=== PATIENT | male | born 1995 | race Caucasian/White ===

== ENCOUNTER 2022-10-20 10:44 | Emergency (ER) | payer MEDICAID, SELFPAY ==
[2022-10-20 10:46] VITALS: BP 146/93; PULSE 92; RESP 17; TEMP 36.7; O2SAT 100; BMI 27.3
--- NOTE | 2022-10-20 10:55 | ED.C_ITS ---
HPI - Psych General: Chief Complaint: Psychiatric Symptoms Stated Complaint: SI Time Seen by Provider: 10/20/22 10:55 Source: patient Mode of arrival: ambulatory Limitations: no limitations History of Present Illness: Patient is a 27-year-old male who presents to ED today for mental health evaluation. Patient tells me I just cannot get right in my head . He states that no matter what he does his suicidal ideations do not improve. He states he is contemplating multiple ways that he could kill himself but ultimately wanted to purchase a firearm to shoot himself. He reports multiple suicide attempts. Patient tells me he is supposed to be taking psychiatric medications but stopped them a few weeks ago. He reports prior meth use but nothing recently. He is denying homicidal ideations or hallucinations. MD complaint: suicidal ideation and feels depressed Onset (ago): day(s) Duration: constant History of same: Yes Relieving factors: none Exacerbating factors: none Context: recent drug abuse and not taking psychiatric medications Associated psychiatric symptoms: depression and suicidal ideation Associated symptoms: Reports depression and suicidal ideation; Deny auditory hallucinations, visual hallucinations or homicidal ideation Treatments prior to arrival: none If self harm: admits thoughts of self harm and has plan Review of Systems Const: Denies: fever(s) or chills Card: Denies: chest pain, palpitations, lightheadedness or syncope Resp: Denies: dyspnea GI: Denies: abdominal pain, nausea, vomiting or diarrhea Skin/Breast: Denies: rash Neuro: Denies: headache(s) Psych: Reports: anxiety, depression, loss of interest, irritability and suicidal ideation; Denies: visual hallucinations, auditory hallucinations or homicidal ideation Physical Exam Const: COMMON NORMALS: no acute distress, patient oriented x3, alert and well nourished GENERAL APPEARANCE: cooperative and well kempt Resp: COMMON NORMALS: normal respiratory effort and clear to auscultation bilaterally AUSCULTATION: clear to auscultation bilaterally Cardio: COMMON NORMALS: regular rate and regular rhythm RATE: regular rate RHYTHM: regular rhythm Neuro: COMMON NORMALS: patient oriented x3 SENSORIUM/ORIENTATION: Yes alert Psych: COMMON NORMALS: mental status grossly normal, Normal thought process present, cooperative, normal affect, speech normal and activity/motor behavior normal APPEARANCE: Yes grossly normal and Yes well kempt ATTITUDE: Yes calm ACTIVITY/MOTOR BEHAVIOR: No psychomotor agitation and Yes Avoids eye contact (attititude/behavior) SPEECH: Yes normal speech MOOD & AFFECT: Yes depressed mood and Yes Flat affect present THOUGHT PROCESS: Normal thought process present THOUGHT CONTENT: Yes Normal thought content present ATTENTION/CONCENTRATION: Yes attention grossly intact and Yes concentration grossly intact MEMORY/COGNITION: Yes memory grossly intact and Yes cognition grossly intact INSIGHT: Good insight present (Psych) JUDGEMENT: Good judgement present (Psych) Course Vital Signs: Vital signs: Vital Signs Temperature 98.1 F 10/20/22 10:46 Pulse Rate 92 10/20/22 10:46 Respiratory Rate 17 10/20/22 10:46 Blood Pressure 146/93 10/20/22 10:46 Pulse Oximetry 100 10/20/22 10:46 Oxygen Delivery Me thod Room Air 10/20/22 10:46 MDM - Psych Medical Decision Making Patient is on a 96-hour hold. We currently do not have any NPU beds available. Patient was accepted to [facility] adult psychiatric unit. Accepting physician is Dr. Figueroa. Lab Data 10/20/22 11:20 10/20/22 11:20 Laboratory Results WBC 8.2 10^3/uL (4.0-10.0) 10/20/22 11:20 RBC 4.70 10^6/uL (4.1-5.3) 10/20/22 11:20 Hgb 14.6 g/dL (11.7-16.6) 10/20/22 11:20 Hct 41.8 % (42.0-52.0) L 10/20/22 11:20 MCV 88.9 fl (80-94) 10/20/22 11:20 MCH 31.1 pg (28.0-34.0) 10/20/22 11:20 MCHC 34.9 g/dL (30.0-36.0) 10/20/22 11:20 RDW 11.5 % (12.1-15.1) L 10/20/22 11:20 Plt Count 277 10^3/cmm (130-400) 10/20/22 11:20 MPV 9.2 fL (7.4-10.4) 10/20/22 11:20 Neut % (Auto) 71.4 % 10/20/22 11:20 Lymph % (Auto) 20.5 % 10/20/22 11:20 Starr % (Auto) 6.8 % 10/20/22 11:20 Eos % (Auto) 0.7 % 10/20/22 11:20 Baso % (Auto) 0.4 % 10/20/22 11:20 Neut # (Auto) 5.87 10^3/uL (1.8-7.7) 10/20/22 11:20 Lymph # (Auto) 1.7 10^3/uL (0.8-4.8) 10/20/22 11:20 Starr # (Auto) 0.6 10^3/uL (0.2-0.9) 10/20/22 11:20 Eos # (Auto) 0.1 10^3/uL (0.0-0.8) 10/20/22 11:20 Baso # (Auto) 0.0 10^3/uL (0.0-0.1) 10/20/22 11:20 Nucleated RBC % (auto) 0 % 10/20/22 11:20 Nucleated RBCs # 0.0 /100WBC 10/20/22 11:20 Sodium 139 mmol/L (136-145) 10/20/22 11:20 Potassium 4.2 mmol/L (3.5-5.1) 10/20/22 11:20 Chloride 102 mmol/L (98-107) 10/20/22 11:20 Carbon Dioxide 27 mmol/L (22-29) 10/20/22 11:20 Anion Gap 14.2 (5-19) 10/20/22 11:20 BUN 8 mg/dL (6-20) 10/20/22 11:20 Creatinine 1.0 mg/dL (0.7-1.2) 10/20/22 11:20 GFR Calculation 88.3 mL/min (90-130) L 10/20/22 11:20 Glucose 103 mg/dL (65-115) 10/20/22 11:20 Calculated Osmolality 287 mOsm/kg (285-295) 10/20/22 11:20 Calcium 9.1 mg/dL (8.5-10.5) 10/20/22 11:20 Total Bilirubin 0.7 mg/dL (0.15-1.2) 10/20/22 11:20 AST 11 U/L (0-40) 10/20/22 11:20 ALT 9 U/L (0-41) 10/20/22 11:20 Alkaline Phosphatase 55 U/L (40-130) 10/20/22 11:20 Total Protein 6.7 g/dL (6.6-8.7) 10/20/22 11:20 Albumin 4.7 g/dL (3.5-5.2) 10/20/22 11:20 Globulin 2.0 g/dL (1.3-4.6) 10/20/22 11:20 Salicylates < 0.3 mg/dL (3-10) L 10/20/22 11:20 Urine Opiates Screen Negative ng/mL (Negative) 10/20/22 11:00 Acetaminophen < 5.0 ug/mL (10-30) L 10/20/22 11:20 Ur Barbiturates Screen Negative ng/mL (Negative) 10/20/22 11:00 Ur Phencyclidine Scrn Negative ng/mL (Negative) 10/20/22 11:00 Ur Amphetamines Screen Positive ng/mL (Negative) H 10/20/22 11:00 U Benzodiazepines Scrn Negative ng/mL (Negative) 10/20/22 11:00 Urine Cocaine Screen Negative ng/mL (Negative) 10/20/22 11:00 U Marijuana (THC) Screen Positive ng/mL (Negative) H 10/20/22 11:00 Ethyl Alcohol < 10 mg/dL (0-10) 10/20/22 11:20 Influenza Type A Ag negative (Negative) 10/20/22 14:46 Influenza Type B Ag negative (Negative) 10/20/22 14:46 SARS-CoV-2 Ag (Rapid) negative (Negative) 10/20/22 14:46 Discharge Plan Discharge Patient Disposition: Xfer Psychiatric Hosp Clinical Impression: Depression, Suicidal ideation Condition: Stable Coding Level of Care Code ED Broadcast Meteorologist for Shyam Ruelas
[2022-10-20 11:30] LABS: Basophils % 0.4 %; Eosinophils # 0.1 10^3/uL (0.0-0.8); Eosinophils % 0.7 %; Hematocrit 41.8 % (42.0-52.0); Hemoglobin 14.6 g/dL (11.7-16.6); Lymphocytes # 1.7 10^3/uL (0.8-4.8); Lymphocytes % 20.5 %; Mean Corpuscular HGB Conc 34.9 g/dL (30.0-36.0); Mean Corpuscular Hemoglobin 31.1 pg (28.0-34.0); Mean Corpuscular Volume 88.9 fl (80-94); Mean Platelet Volume 9.2 fL (7.4-10.4); Monocytes # 0.6 10^3/uL (0.2-0.9); Monocytes % 6.8 %; Neutrophils # 5.87 10^3/uL (1.8-7.7); Neutrophils % 71.4 %; Nucleated Red Blood Cells % 0 %; Platelet Count 277 10^3/cmm (130-400); Red Cell Distribution Width 11.5 % (12.1-15.1); White Blood Count 8.2 10^3/uL (4.0-10.0)
[2022-10-20 11:34] LABS: Amphetamines Screen Urine Positive (Negative); Barbiturates Screen Urine Negative (Negative); Benzodiazepines Screen Urine Negative (Negative); Cocaine Screen Urine Negative (Negative); Opiate Screen Urine Negative (Negative); PCP Screen Urine Negative (Negative); THC Screen Urine Positive (Negative)
--- NOTE | 2022-10-20 11:37 | PC.PHAR ---
pt states he takes care of his own medications-pt states he stop taking all his meds 2 weeks ago celexa 20mg daily, lisinopril 10mg daily and trazodone 50mg hs filled 09/03/22 30d/s at [facility] [phone]-pt states he thinks he got his invega sustenna 156mg/ml on 09/23/22 [facility] pharmacy last filled 08/11/22 states the rxs has one refill-
[2022-10-20 11:47] LABS: Alanine Aminotransferase 9 U/L (0-41); Albumin Level 4.7 g/dL (3.5-5.2); Alkaline Phosphatase 55 U/L (40-130); Anion Gap 14.2 (5-19); Aspartate Amino Transferase 11 U/L (0-40); Blood Urea Nitrogen 8 mg/dL (6-20); Calcium 9.1 mg/dL (8.5-10.5); Carbon Dioxide 27 mmol/L (22-29); Chloride 102 mmol/L (98-107); Glomerular Filtration Rate 88.3 mL/min (90-130); Glucose 103 mg/dL (65-115); Osmolality Calculated 287 mOsm/kg (285-295); Potassium 4.2 mmol/L (3.5-5.1); Sodium 139 mmol/L (136-145); Total Bilirubin 0.7 mg/dL (0.15-1.2); Total Protein 6.7 g/dL (6.6-8.7)
[2022-10-20 11:50] LABS: Acetaminophen < 5.0 ug/mL (10-30); Alcohol Level < 10 mg/dL (0-10); Salicylate < 0.3 mg/dL (3-10)
--- NOTE | 2022-10-20 15:07 | DCPLANNER ---
Called [facility] Adult psych unit at 1420 was told to fax paperwork, but currently does not have beds. Faxed paperwork @ [phone] Called Jeovany Bertrand at 1421 left voicemail Called [facility] at 1425 and spoke with Marilee. She advised she has beds available, but will need a covid order as well another affidavit on pt. Called [facility] at 1438 spoke with Michela and faxed paperwork at [phone] Called Sheela with [facility]. at [phone] has beds faxed paperwork at [phone]
--- NOTE | 2022-10-20 15:16 | DCPLANNER ---
Cara with [facility] adult psych called advised Dr. Figueroa is accepting patient. Advised to call report to Stephanie at [phone]
[2022-10-20 15:18] LABS: Influenza A by IFA negative (Negative); Influenza B by IFA negative (Negative); SARS Covid-2 Antigen negative (Negative)
[2022-10-20 15:23] VITALS: BP 172/89; PULSE 91; RESP 15; O2SAT 100
--- NOTE | 2022-10-28 13:22 | DCPLANNER ---
mental health program manager was triggered to call patient due to no primary care physician - patient does not live in the area.
== END 2022-10-20 16:56 ==
PROVIDERS: Emergency Provider Physician Assistant
DX: R45.851 Suicidal ideations (principal); F32.A Depression, unspecified; Z20.822 Contact with and (suspected) exposure to COVID-19
CPT/HCPCS: 36415; 80053; 80306; 80307; 85025; 87426; 87804; 99283